=== PATIENT | male | born 1980 | race American Indian/Alaskan Native ===

== ENCOUNTER 2021-06-07 11:18 | Emergency (ER) | payer OTHER, SELFPAY ==
--- NOTE | 2021-06-07 12:10 | Emergency Department Report ---
HPI - General Chief Complaint: Psych Time Seen by Provider: 06/07/21 11:55 - HPI HPI: Room 12 The patient is a 40-year-old male present with a chief complaint of suicidal ideation. Patient has a history of schizophrenia and bipolar disorder states since yesterday he has had suicidal ideation. Patient states he is feeling overwhelmed with life. Patient states his plan was to overdose on medication but he denies making any attempts at harming self. Patient states he feels as though he would be "better off not around." ED Past Medical Hx - Past Medical History Previous Medical History?: Yes Hx Psychiatric Treatment: Yes - Surgical History Past Surgical History?: Yes Additional Surgical History: Left arm surgery - Family History Family history: no significant - Social History Smoking Status: Current Every Day Smoker Substance Use Type: Alcohol - Medications Home Medications: Home Medications Medication Instructions Recorded Confirmed Last Taken Type ARIPiprazole [Abilify] 10 mg PO DAILY #30 tab 06/09/21 Unknown Rx FLUoxetine [PROzac] 20 mg PO QDAY #30 capsule 06/09/21 Unknown Rx traZODone [Desyrel] 50 mg PO QHS #30 tab 06/09/21 Unknown Rx ED Review of Systems ROS: Stated complaint: FEEL LIKE HARMING HIMSELF Other details as noted in HPI Constitutional: no symptoms reported Eyes: denies: eye pain ENT: denies: throat pain Respiratory: no symptoms reported Cardiovascular: denies: chest pain Endocrine: no symptoms reported Gastrointestinal: denies: abdominal pain Genitourinary: denies: dysuria Musculoskeletal: denies: back pain Neurological: denies: headache Psychiatric: suicidal thoughts Physical Exam - Physical Exam Vital Signs: Vital Signs 06/07/21 11:34 Temperature 97.9 F Pulse Rate 97 H Respiratory 20 Rate Blood Pressure 104/62 O2 Sat by Pulse 98 Oximetry Physical Exam: GENERAL: The patient is well-developed well-nourished male sitting in chair not appearing to be in acute distress. [] HEENT: Normocephalic. Atraumatic. Extraocular motions are intact. Patient has moist mucous membranes. NECK: Supple. Trachea midline CHEST/LUNGS: Clear to auscultation. There is no respiratory distress noted. HEART/CARDIOVASCULAR: Regular. There is no tachycardia. There is no gallop rub or murmur. ABDOMEN: Abdomen is soft, nontender. Patient has normal bowel sounds. There is no abdominal distention. SKIN: There is no rash. There is no edema. There is no diaphoresis. NEURO: The patient is awake, alert, and oriented. The patient is cooperative. The patient has no focal neurologic deficits. The patient has normal speech and gait. MUSCULOSKELETAL: There is no evidence of acute injury. ED Course Vital Signs 06/07/21 11:34 Temperature 97.9 F Pulse Rate 97 H Respiratory 20 Rate Blood Pressure 104/62 O2 Sat by Pulse 98 Oximetry ED Medical Decision Making - Lab Data Result diagrams: 06/07/21 12:00 06/07/21 12:00 - Differential Diagnosis Suicidal ideation Critical care attestation.: If time is entered above; I have spent that time in minutes in the direct care of this critically ill patient, excluding procedure time. ED Disposition Clinical Impression: Pyuria, Encounter for screening examination for mental health and behavioral disorders Disposition: DC-01 TO HOME OR SELFCARE Is pt being admited?: No Does the pt Need Aspirin: No Condition: Good Additional Instructions: Please continue current outpatient medications. Please follow-up with your primary medical doctor within the next [address] Weir Is a local primary care doctor. Please follow-up with outpatient mental health resources that have been provided to the patient. Please have a primary care doctor contact medical records department to obtain copies of laboratory studies, and medical documentation, to follow-up on nonemergent incidental abnormal findings. Recommend that patient abstain from consumption of marijuana, tobacco, smoke products, and alcohol. Please return to the emergency room right away with new pain, worsened pain, migration of pain, projectile vomiting, change in mental status, confusion, inability to tolerate liquid feeds, new, worsened or different symptoms not present on the initial emergency room evaluation. Urine sample demonstrated the presence of sterile pyuria, this may signify chlamydia, or atypical urinary tract infection. Since the patient is not having symptoms, recommend follow-up with either outpatient primary care doctor, health department, or an urgent care center. In case of an emergency, please contact the following numbers: [place] Crisis and Access Line: Number: Crisis Text Line: (Text START) Number: 477374 Suicide Prevention Line: Number: Emergency Number: 911 SUBSTANCE ABUSE PROGRAMS: [facility]: Location: [place], [place] [employer] Address: [address] [place] [address] [facility]: Address: [address] [place] [address] [facility]: Address: [address] [place] [address] [facility]: Address: [address] [place] [address] [facility] Address: [address] [place] [address]. Please contact above numbers to attempt placement into free based program. Medicaid Programs: [facility]: Address: [address] [place] [address] [facility]: Address: [address] [place] [address] Professional and Agency Contacts To help [facility] Crises(14/06) [place] Crisis Line: Suicide Prevention Line: Crisis Text Line: Text START to 434755 Emergency: 911 Outpatient COMMUNITY Behavioral Health Resources: DEKALB: [facility] [address], [place] [address] [facility] [address] [place] [address] ANILA: [facility] - [address] [place] [address] Wednesday thru Wednesday - 8am - 5pm JENANNAMARIE: [employer] [facility] Address: [address] [place] [address] [facility] Address: [address] [place] [address] Wednesday thru Wednesday- 7am-2pm [facility] Address: [address] [place] [address] Wednesday thru Wednesday: 8:30AM-5PM OUTPATIENT MENTAL HEALTH RESOURCES [facility], [address], [place] [address] ARIS Coopre MD: [address] [place] [address] [facility]: [address] [place] [address] [place] [address] [phone] [facility]: [address] [facility] [address] [place] [address] [facility]: [address] [facility] [address]. B [facility] [id number] [facility]: [address] [place], [place] Larry Darden MD: [address] [facility] [id number] [facility]: [address] [place], [place] [id number] [phone] [place] CRISIS AND ACCESS LINE: * The [employer] [facility] [employer] goal is to take chronically homeless men and help them overcome their barriers, change them as human beings, making them productive and self- sufficient individuals. Each [employer] participant is housed at our facility for up to a year while they participate in transitional work (earning $7.40/hr for 30+ hours per week). All participants renounce dependency and remain drug and alcohol free. Personal support, case management, and workforce training is offered throughout the program. We also provide AA/NA Classes, GED classes, support in obtaining a city route driver's licenses, help setting up a bank account, and life skill preparation courses. IF A MAN IS COMMITTED TO BEING CLEAN, TO ADDRESSING THE PAST, AND TO WORKING, WE WILL HELP HIM GET A CONCRETE FLOOR INSTALLER JOB, TRANSPORTATION AND PERMANENT HOUSING WITHIN A YEAR. [employer] [address] [place], [place] [id number] [email or web address] HOMELESS RESOURCES: [facility] NEED HELP? If you are in need of help or know someone who does, please contact us at [email or web address] or call , or come to our offices at [address] [place] [address], [place] [address], Wednesday-Wednesday beginning at 8AM. [facility] Males only Admission at 7am Mon to Wed Address: [place] [address] Client Engagement [facility] [phone] Regular program admission occurs Wednesday through Wednesday at 7:00 am and operates on a first come, first serve basis. Because we cant anticipate program availability in advance and program spots are in high demand, we recommend arriving early. Space fills up fast! Next steps can include: Assignment to a [facility] program bed Connection to and placement in a partner program, or Referral to a partner agency [facility] Admission at 4:30pm daily Address: [place] [address] [facility] Admission from 8am to 10am Daily No intake until 11/18/20 Address: [place] [address] Prescriptions: ARIPiprazole [Abilify] 10 mg PO DAILY #30 tab traZODone [Desyrel] 50 mg PO QHS #30 tab FLUoxetine [PROzac] 20 mg PO QDAY #30 capsule Referrals: [facility] [Outside] - 3-5 Days [facility] [Outside] - 3-5 Days CATRACHITA WEIR MD [Staff Physician] - 3-5 Days
[2021-06-07 12:28] LABS: Basophils % (Auto) 0.5 % (0.0-1.8); Eosinophils # (Auto) 0.1 K/mm3 (0.0-0.4); Eosinophils % (Auto) 2.4 % (0.0-4.3); Hematocrit 43.8 % (35.5-45.6); Hemoglobin 14.8 gm/dl (11.8-15.2); Lymphocytes # (Auto) 1.3 K/mm3 (1.2-5.4); Lymphocytes % (Auto) 22.5 % (13.4-35.0); Mean Corpuscular HGB Conc 34 % (32-34); Mean Corpuscular Volume 90 fl (84-94); Monocytes # (Auto) 0.3 K/mm3 (0.0-0.8); Monocytes % (Auto) 5.2 % (0.0-7.3); Platelet Count 262 K/mm3 (140-440); Red Blood Count 4.88 M/mm3 (3.65-5.03); Red Cell Distribution Width 14.1 % (13.2-15.2)
[2021-06-07 12:44] LABS: BUN/Creatinine Ratio 18; Blood Urea Nitrogen 16 mg/dL (9-20); Hemolysis Index 6
[2021-06-07 13:06] LABS: Benzodiazepines Screen,Urine Negative; Cannabinoid Screen,Urine Negative; Methadone Screen,Urine Negative; Opiate Screen,Urine Negative
[2021-06-07 13:20] LABS: Amphetamine Screen,Urine Positive; Cocaine Screen,Urine Positive
[2021-06-07 14:12] LABS: Bilirubin,Urine NEG (Negative); Blood,Urine NEG (Negative); Color,Urine Yellow (Yellow); Mucus,Urine FEW /HPF; Protein,Urine <15 mg/dL mg/dL (Negative); Urobilinogen,Urine < 2.0 mg/dL (<2.0)
--- NOTE | 2021-06-08 09:45 | Consultation ---
History of Present Illness - Reason for Consult Consult date: 06/08/21 Reason for consult: SI - History of Present Psychiatric Illness Per ER Note: The patient is a 40-year-old male present with a chief complaint of suicidal ideation. Patient has a history of schizophrenia and bipolar disorder states since yesterday he has had suicidal ideation. Patient states he is feeling overwhelmed with life. Patient states his plan was to overdose on medication but he denies making any attempts at harming self. Patient states he feels as though he would be "better off not around." Arianne Jalloh is a 40y/o male patient who states he has been feeling suicidal on and off for about a year. He says "I'm not happy and just don't want to be here." He says he "wants to overdose." When asking the patient what brought him today or if it was worse, he replies "It's getting worse. Just don't know." He denies hallucinations of any kind. The patient says he takes prozac, abilify and trazodone. He says "they work, but then again I don't know." The patient says he's been compliant with his regimen. The patient denies any illicit drug use, but is positive for amphetamines and cocaine. PAST PSYCHIATRIC HISTORY: Diagnoses: Schizophrenia, bipolar Suicide attempts or Self-harm behavior: Denies Prior psychiatric hospitalizations: Yes Substance Abuse history: Denies Previous psychiatric medications tried: Denies Outpatient treatment: Denies PAST MEDICAL HISTORY: Denies Family Psychiatric History: None reported or documented SOCIAL HISTORY Marital Status: Single Living Arrangements: Homeless Employment Status: Employed Access to guns/weapons: denies Education: History of Abuse: denies Legal History: denies REVIEW OF SYSTEMS Constitutional: Negative for weight loss ENT: Negative for stridor Respiratory: Negative for cough or hemoptysis All other systems reviewed and are negative MENTAL STATUS EXAMINATION General Appearance and Behavior: Age appropriate, wearing appropriate clothes, cooperative polite with questioning, good eye contact, cooperative Cooperation: cooperative Psychomotor Behavior: Psychomotor normal Mood: "depressed" Affect and affective range: congruent with stated mood Thought Process: goal directed Thought Content: SI, hopelessness Speech: Normal volume, Regular rate and rhythm Suicidal Ideation: Yes Homicidal Ideation: Denies hallucination: Denies Delusions: None elicited Impulse Control: Limited Insight and Judgment: Limited Memory: Intact Attention: attentive, engaging Orientation: Alert and oriented Diagnoses: Bipolar Disorder Polysubstance abuse Treatment Plan 1013 Abilify 10mg po daily Prozac 20mg po daily Trazodone 50mg po qhs PSYCHOTHERAPY: Supportive psychotherapy provided MEDICAL: Per primary team DELIRIUM PRECAUTIONS: Please re-orient patient frequently, keep lights on during the day, and minimize benzodiazepines and opiates as these medications could worsen patient's confusion. RN MDS COORDINATOR: Per medical team DISPOSITION: Recommend acute psychiatric inpatient treatment will follow Thank you for the consult. Please contact with any questions and/or concerns. Case staffed with Dr. Kang Medications and Allergies Allergies Allergy/AdvReac Type Severity Reaction Status Date / Time No Known Allergies Allergy Verified 06/08/21 09:36 Mental Status Exam - Vital signs Last Vital Signs Temp 97.9 F 06/08/21 08:00 Pulse 79 06/08/21 08:00 Resp 20 06/08/21 08:00 BP 106/56 06/08/21 08:00 Pulse Ox 100 06/08/21 08:00 Results Result Diagrams: 06/07/21 12:00 06/07/21 12:00 Abnormal lab results 06/07/21 06/07/21 06/07/21 Range/Units 11:39 12:00 12:00 Glucose (75-100) mg/dL Urine WBC (Auto) 16.0 H (0.0-6.0) /HPF Salicylates < 0.3 L (2.8-20.0) mg/dL Acetaminophen 5.0 L (10.0-30.0) ug/mL 06/07/21 Range/Units 12:00 Glucose 60 L (75-100) mg/dL Urine WBC (Auto) (0.0-6.0) /HPF Salicylates (2.8-20.0) mg/dL Acetaminophen (10.0-30.0) ug/mL All other labs normal.
--- NOTE | 2021-06-08 10:39 | Event Note ---
Date: 06/08/21 S: No events reported overnight O: Vital Signs - 24 hr 06/07/21 06/07/21 06/07/21 11:34 13:02 20:02 Temperature 97.9 F 98.0 F 98.0 F Pulse Rate 97 H 90 97 H Respiratory 20 20 18 Rate Blood Pressure 104/62 Blood Pressure 105/59 100/59 [Right] O2 Sat by Pulse 98 100 100 Oximetry 06/08/21 08:00 Temperature 97.9 F Pulse Rate 79 Respiratory 20 Rate Blood Pressure Blood Pressure 106/56 [Right] O2 Sat by Pulse 100 Oximetry A: Bipolar disorder, polysubstance abuse. P: Awaiting psych placement
[2021-06-08] MEDS: ARIPiprazole 10 MG TAB PO SCH (11:03)
[2021-06-08] MEDS: SULFAMETHOXAZOLE/TRIMETHOPRIM 800/160MG DS TAB PO SCH ×2 (11:03→21:50)
[2021-06-08] MEDS: FLUoxetine 20 MG CAP PO SCH (11:03)
[2021-06-08] MEDS ORDERED: traZODone 50 MG TAB PO SCH (22:00)
--- NOTE | 2021-06-09 08:52 | Progress Note ---
Subjective - Reason for Consult Consult date: 06/09/21 Reason for consult: SI - Chief Complaint Chief complaint: The patient was seen today. He is awake and a/o x 3. He is calm and cooperative. He is standing in the room. He says he's doing "alright" when asked. The patient states that he is no longer having the suicidal thoughts. He also denies homicidal thoughts. He also denies hallucinations of any kind. REVIEW OF SYSTEMS Constitutional: Negative for weight loss ENT: Negative for stridor Respiratory: Negative for cough or hemoptysis All other systems reviewed and are negative MENTAL STATUS EXAMINATION General Appearance and Behavior: Age appropriate, wearing appropriate clothes, cooperative polite with questioning, good eye contact, cooperative Cooperation: cooperative Psychomotor Behavior: Psychomotor normal Mood: "alright" Affect and affective range: congruent with stated mood Thought Process: goal directed Thought Content: None Speech: Normal volume, Regular rate and rhythm Suicidal Ideation: Denies Homicidal Ideation: Denies hallucination: Denies Delusions: None elicited Impulse Control: Limited Insight and Judgment: Limited Memory: Intact Attention: attentive, engaging Orientation: Alert and oriented Diagnoses: Bipolar Disorder Polysubstance abuse Treatment Plan d/c 1013 Abilify 10mg po daily Prozac 20mg po daily Trazodone 50mg po qhs PSYCHOTHERAPY: Supportive psychotherapy provided MEDICAL: Per primary team DELIRIUM PRECAUTIONS: Please re-orient patient frequently, keep lights on during the day, and minimize benzodiazepines and opiates as these medications could worsen patient's confusion. HIGHWAY MAINTENANCE SUPERVISOR: Per medical team DISPOSITION: Do not recommend acute psychiatric inpatient treatment. The patient understands that if suicidal thoughts are to return he is to seek immediate assistance. The ecological risk assessor to further discuss safety plan The patient to abstain from all illicit drug use He is to follow up with outpatient psych in 7 to 10 days upon discharge will sign off Thank you for the consult. Please contact with any questions and/or concerns. Case staffed with Dr. Kang Mental Status Exam - Vital signs Last Vital Signs Temp 98.3 F 06/09/21 01:40 Pulse 86 06/09/21 01:40 Resp 16 06/09/21 01:40 BP 112/68 06/09/21 01:40 Pulse Ox 100 06/09/21 01:40
[2021-06-09] MEDS: ARIPiprazole 10 MG TAB PO SCH (10:07)
[2021-06-09] MEDS: SULFAMETHOXAZOLE/TRIMETHOPRIM 800/160MG DS TAB PO SCH (10:08)
[2021-06-09] MEDS: FLUoxetine 20 MG CAP PO SCH (10:08)
--- NOTE | 2021-06-09 10:59 | Event Note ---
Date: 06/09/21 Laboratory studies, vital signs, ER documentation and psychiatric documentation reviewed and appreciated. The patient denies physical pain to myself. He denies homicidality, suicidality and hallucinations. He specifically denies testicular pain, and urinary symptoms. His laboratory studies have demonstrated an asymptomatic sterile pyuria. Since he denies testicular pain, and symptoms, outpatient follow-up with primary care and/or health department. Would not continue Bactrim for this. Patient deemed medically cleared on his initial ER evaluation. He has not had an acute medical decompensation at this time, and he is suitable for discharge as an outpatient. Psychiatric team have recommended outpatient follow-up. Vital Signs 06/07/21 06/07/21 06/07/21 11:34 13:02 20:02 Temperature 97.9 F 98.0 F 98.0 F Pulse Rate 97 H 90 97 H Respiratory 20 20 18 Rate Blood Pressure 104/62 Blood Pressure 105/59 100/59 [Right] O2 Sat by Pulse 98 100 100 Oximetry 06/08/21 06/08/21 06/09/21 08:00 19:43 01:40 Temperature 97.9 F 98.2 F 98.3 F Pulse Rate 79 80 86 Respiratory 20 18 16 Rate Blood Pressure Blood Pressure 106/56 105/62 112/68 [Right] O2 Sat by Pulse 100 99 100 Oximetry Lab Results 06/07/21 06/07/21 06/07/21 Range/Units 10:23 11:39 11:39 WBC (4.5-11.0) K/mm3 RBC (3.65-5.03) M/mm3 Hgb (11.8-15.2) gm/dl Hct (35.5-45.6) % MCV (84-94) fl MCH (28-32) pg MCHC (32-34) % RDW (13.2-15.2) % Plt Count (140-440) K/mm3 Lymph % (Auto) (13.4-35.0) % [place] % (Auto) (0.0-7.3) % Eos % (Auto) (0.0-4.3) % Baso % (Auto) (0.0-1.8) % Lymph # (Auto) (1.2-5.4) K/mm3 [place] # (Auto) (0.0-0.8) K/mm3 Eos # (Auto) (0.0-0.4) K/mm3 Baso # (Auto) (0.0-0.1) K/mm3 Seg Neutrophils % (40.0-70.0) % Seg Neutrophils # (1.8-7.7) K/mm3 Sodium (137-145) mmol/L Potassium (3.6-5.0) mmol/L Chloride (98-107) mmol/L Carbon Dioxide (22-30) mmol/L Anion Gap mmol/L BUN (9-20) mg/dL Creatinine (0.8-1.3) mg/dL Estimated GFR ml/min BUN/Creatinine Ratio % Glucose (75-100) mg/dL POC Glucose (70-105) mg/dL Calcium (8.4-10.2) mg/dL Urine Color Yellow (Yellow) Urine Turbidity Clear (Clear) Urine pH 6.0 (5.0-7.0) Ur Specific [place] 1.021 (1.003-1.030) Urine Protein <15 mg/dl (Negative) mg/dL Urine Glucose (UA) Neg (Negative) mg/dL Urine Ketones Neg (Negative) mg/dL Urine Blood Neg (Negative) Urine Nitrite Neg (Negative) Urine Bilirubin Neg (Negative) Urine Urobilinogen < 2.0 (<2.0) mg/dL Ur Leukocyte Esterase Sm (Negative) Urine WBC (Auto) 16.0 H (0.0-6.0) /HPF Urine RBC (Auto) 2.0 (0.0-6.0) /HPF Urine Mucus Few /HPF Salicylates (2.8-20.0) mg/dL Urine Opiates Screen Negative Urine Methadone Screen Negative Acetaminophen (10.0-30.0) ug/mL Ur Barbiturates Screen Negative Ur Phencyclidine Scrn Negative Ur Amphetamines Screen Positive U Benzodiazepines Scrn Negative Urine Cocaine Screen Positive U Marijuana (THC) Screen Negative Drugs of Abuse Note Disclamer Plasma/Serum Alcohol (0-0.07) % Coronavirus (PCR) Negative (Negative) 06/07/21 06/07/21 06/07/21 Range/Units 12:00 12:00 12:00 WBC (4.5-11.0) K/mm3 RBC (3.65-5.03) M/mm3 Hgb (11.8-15.2) gm/dl Hct (35.5-45.6) % MCV (84-94) fl MCH (28-32) pg MCHC (32-34) % RDW (13.2-15.2) % Plt Count (140-440) K/mm3 Lymph % (Auto) (13.4-35.0) % [place] % (Auto) (0.0-7.3) % Eos % (Auto) (0.0-4.3) % Baso % (Auto) (0.0-1.8) % Lymph # (Auto) (1.2-5.4) K/mm3 [place] # (Auto) (0.0-0.8) K/mm3 Eos # (Auto) (0.0-0.4) K/mm3 Baso # (Auto) (0.0-0.1) K/mm3 Seg Neutrophils % (40.0-70.0) % Seg Neutrophils # (1.8-7.7) K/mm3 Sodium 142 (137-145) mmol/L Potassium 4.0 (3.6-5.0) mmol/L Chloride 104.2 (98-107) mmol/L Carbon Dioxide 29 (22-30) mmol/L Anion Gap 13 mmol/L BUN 16 (9-20) mg/dL Creatinine 0.9 (0.8-1.3) mg/dL Estimated GFR > 60 ml/min BUN/Creatinine Ratio 18 % Glucose 60 L (75-100) mg/dL POC Glucose (70-105) mg/dL Calcium 9.0 (8.4-10.2) mg/dL Urine Color (Yellow) Urine Turbidity (Clear) Urine pH (5.0-7.0) Ur Specific [place] (1.003-1.030) Urine Protein (Negative) mg/dL Urine Glucose (UA) (Negative) mg/dL Urine Ketones (Negative) mg/dL Urine Blood (Negative) Urine Nitrite (Negative) Urine Bilirubin (Negative) Urine Urobilinogen (<2.0) mg/dL Ur Leukocyte Esterase (Negative) Urine WBC (Auto) (0.0-6.0) /HPF Urine RBC (Auto) (0.0-6.0) /HPF Urine Mucus /HPF Salicylates < 0.3 L (2.8-20.0) mg/dL Urine Opiates Screen Urine Methadone Screen Acetaminophen 5.0 L (10.0-30.0) ug/mL Ur Barbiturates Screen Ur Phencyclidine Scrn Ur Amphetamines Screen U Benzodiazepines Scrn Urine Cocaine Screen U Marijuana (THC) Screen Drugs of Abuse Note Plasma/Serum Alcohol (0-0.07) % Coronavirus (PCR) (Negative) 06/07/21 06/07/21 06/08/21 Range/Units 12:00 12:00 10:39 WBC 5.8 (4.5-11.0) K/mm3 RBC 4.88 (3.65-5.03) M/mm3 Hgb 14.8 (11.8-15.2) gm/dl Hct 43.8 (35.5-45.6) % MCV 90 (84-94) fl MCH 31 (28-32) pg MCHC 34 (32-34) % RDW 14.1 (13.2-15.2) % Plt Count 262 (140-440) K/mm3 Lymph % (Auto) 22.5 (13.4-35.0) % [place] % (Auto) 5.2 (0.0-7.3) % Eos % (Auto) 2.4 (0.0-4.3) % Baso % (Auto) 0.5 (0.0-1.8) % Lymph # (Auto) 1.3 (1.2-5.4) K/mm3 [place] # (Auto) 0.3 (0.0-0.8) K/mm3 Eos # (Auto) 0.1 (0.0-0.4) K/mm3 Baso # (Auto) 0.0 (0.0-0.1) K/mm3 Seg Neutrophils % 69.4 (40.0-70.0) % Seg Neutrophils # 4.0 (1.8-7.7) K/mm3 Sodium (137-145) mmol/L Potassium (3.6-5.0) mmol/L Chloride (98-107) mmol/L Carbon Dioxide (22-30) mmol/L Anion Gap mmol/L BUN (9-20) mg/dL Creatinine (0.8-1.3) mg/dL Estimated GFR ml/min BUN/Creatinine Ratio % Glucose (75-100) mg/dL POC Glucose 107 H (70-105) mg/dL Calcium (8.4-10.2) mg/dL Urine Color (Yellow) Urine Turbidity (Clear) Urine pH (5.0-7.0) Ur Specific [place] (1.003-1.030) Urine Protein (Negative) mg/dL Urine Glucose (UA) (Negative) mg/dL Urine Ketones (Negative) mg/dL Urine Blood (Negative) Urine Nitrite (Negative) Urine Bilirubin (Negative) Urine Urobilinogen (<2.0) mg/dL Ur Leukocyte Esterase (Negative) Urine WBC (Auto) (0.0-6.0) /HPF Urine RBC (Auto) (0.0-6.0) /HPF Urine Mucus /HPF Salicylates (2.8-20.0) mg/dL Urine Opiates Screen Urine Methadone Screen Acetaminophen (10.0-30.0) ug/mL Ur Barbiturates Screen Ur Phencyclidine Scrn Ur Amphetamines Screen U Benzodiazepines Scrn Urine Cocaine Screen U Marijuana (THC) Screen Drugs of Abuse Note Plasma/Serum Alcohol 0.02 (0-0.07) % Coronavirus (PCR) (Negative)
[2021-06-09 11:23] VITALS: BP 92/49
== END 2021-06-09 13:32 | disposition home or self-care (01) ==
LOC: ED 11:18
DX: R82.81 Pyuria (principal); F25.0 Schizoaffective disorder, bipolar type; F17.200 Nicotine dependence, unspecified, uncomplicated; Z13.30 Encounter for screening examination for mental health and behavioral disorders, unspecified; Z20.822 Contact with and (suspected) exposure to COVID-19; Z98.890 Other specified postprocedural states; Z79.899 Other long term (current) drug therapy
CPT/HCPCS: 36415; 80048; 80307; 81001; 82962; 85025; 87086; 99284; U0003; 80320; G0480